=== PATIENT | male | born 1970 | race American Indian/Alaskan Native ===

== ENCOUNTER 2018-09-19 11:12 | Outpatient (CLI) | payer BC ==
[2018-09-19] MEDS ORDERED: XYLOCAINE TOPICAL 4% TP ONE (12:16)
== END 2018-09-19 11:13 | disposition home or self-care (01) ==
LOC: WOUND 11:12
PROVIDERS: ATTEND Surgery
DX: E11.622 Type 2 diabetes mellitus with other skin ulcer (principal); L97.121 Non-pressure chronic ulcer of left thigh limited to breakdown of skin; I10 Essential (primary) hypertension; E78.5 Hyperlipidemia, unspecified; M10.9 Gout, unspecified
CPT/HCPCS: 97605

== ENCOUNTER 2018-09-26 13:10 | Outpatient (CLI) | payer BC ==
[2018-09-26] MEDS ORDERED: SILVER NITRATE TP ONE (14:07)
== END 2018-09-26 13:11 | disposition home or self-care (01) ==
LOC: WOUND 13:10
PROVIDERS: ATTEND Surgery
DX: E11.622 Type 2 diabetes mellitus with other skin ulcer (principal); L97.121 Non-pressure chronic ulcer of left thigh limited to breakdown of skin; L02.416 Cutaneous abscess of left lower limb; I10 Essential (primary) hypertension; E78.5 Hyperlipidemia, unspecified; M10.9 Gout, unspecified
CPT/HCPCS: 17250; G0463; 99213

== ENCOUNTER 2018-10-03 12:20 | Outpatient (CLI) | payer BC ==
[2018-10-03] MEDS ORDERED: XYLOCAINE TOPICAL 4% TP ONE (12:31)
== END 2018-10-03 12:21 | disposition home or self-care (01) ==
LOC: WOUND 12:20
PROVIDERS: ATTEND Surgery
DX: E11.622 Type 2 diabetes mellitus with other skin ulcer (principal); L97.122 Non-pressure chronic ulcer of left thigh with fat layer exposed; L02.416 Cutaneous abscess of left lower limb; I10 Essential (primary) hypertension; E78.5 Hyperlipidemia, unspecified; M10.9 Gout, unspecified

== ENCOUNTER 2018-10-10 13:08 | Outpatient (CLI) | payer BC ==
[2018-10-10] MEDS ORDERED: SILVER NITRATE TP ONE (13:25)
[2018-10-10] MEDS ORDERED: XYLOCAINE TOPICAL 2% 30ML TP ONE (14:14)
== END 2018-10-10 13:09 | disposition home or self-care (01) ==
LOC: WOUND 13:08
PROVIDERS: ATTEND Surgery
DX: T81.89XD Other complications of procedures, not elsewhere classified, subsequent encounter (principal); E11.628 Type 2 diabetes mellitus with other skin complications; L02.416 Cutaneous abscess of left lower limb; I10 Essential (primary) hypertension; E78.5 Hyperlipidemia, unspecified; M10.9 Gout, unspecified; Y83.8 Other surgical procedures as the cause of abnormal reaction of the patient, or of later complication, without mention of misadventure at the time of the procedure
CPT/HCPCS: 17250

== ENCOUNTER 2018-10-17 10:23 | Outpatient (CLI) | payer BC ==
[2018-10-17] MEDS ORDERED: SILVER NITRATE TP ONE (10:45)
[2018-10-17] MEDS ORDERED: XYLOCAINE TOPICAL 4% TP ONE (10:45)
== END 2018-10-17 10:24 | disposition home or self-care (01) ==
LOC: WOUND 10:23
PROVIDERS: ATTEND Surgery
DX: T81.89XD Other complications of procedures, not elsewhere classified, subsequent encounter (principal); E11.9 Type 2 diabetes mellitus without complications; I10 Essential (primary) hypertension; E78.5 Hyperlipidemia, unspecified; M10.9 Gout, unspecified; Y83.8 Other surgical procedures as the cause of abnormal reaction of the patient, or of later complication, without mention of misadventure at the time of the procedure

== ENCOUNTER 2018-10-29 13:08 | Outpatient (CLI) | payer BC | END 2018-10-29 13:09 | disposition home or self-care (01) | LOC: WOUND 13:08 | CPT/HCPCS: 99215; G0463 ==